=== PATIENT | female | born 1965 | race African-American/Black ===

== ENCOUNTER 2024-04-22 10:20 | Emergency (ER) | payer MEDICAID, OTHER ==
[~2024-04-22] VITALS: Ht 167.6 cm; Wt 59.0 kg
[2024-04-22 10:40] VITALS: BP 145/88; PULSE 73; RESP 16; TEMP 98.4; O2SAT 100
[2024-04-22] MEDS ORDERED: MUPI22OI2 TP (10:58)
== END 2024-04-22 11:16 | disposition home or self-care (01) ==
LOC: ER 10:32
DX: S91.001A Unspecified open wound, right ankle, initial encounter (principal); X58.XXXA Exposure to other specified factors, initial encounter; Y93.89 Activity, other specified; Y92.89 Other specified places as the place of occurrence of the external cause; Y99.8 Other external cause status
CPT/HCPCS: 99283